=== PATIENT | male | born 1970 | race Caucasian/White ===

== ENCOUNTER 2017-07-18 18:08 | Emergency (ER) | payer SELFPAY ==
[~2017-07-18] VITALS: Ht 177.8 cm; Wt 86.2 kg
[2017-07-18 18:13] VITALS: BP 130/86
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
[2017-07-18] MEDS ORDERED: MULTIVITAMIN-12 10 ML, THIAMINE 100 MG, MAGNESIUM SULFATE 50% 2,000 MG, FOLIC ACID 5 MG... IV ONE ×5 (19:37)
[2017-07-18] MEDS ORDERED: FOLIC ACID 5 MG/ML SYR ONE (19:45)
[2017-07-18] MEDS ORDERED: THIAMINE 200 MG/2 ML VIAL ONE (19:45)
[2017-07-18] MEDS ORDERED: MULTIVITAMIN-12 10 ML VIAL IV ONE (19:45)
[2017-07-18] MEDS ORDERED: MAGNESIUM SULFATE 50% 1000 MG/2 ML VIAL IV ONE (19:45)
[2017-07-18 19:54] LABS: BASOPHILS # (AUTO) 0.3 K/uL (0.00-0.22); EOSINOPHILS # (AUTO) 0.1 K/uL (0-0.4); HEMOGLOBIN 16.4 g/dL (12.0-18.0); LYMPHOCYTES # (AUTO) 1.6 K/uL (2.0-11.5); MEAN CORPUSCULAR HEMOGLOBIN 30 pg (27-31); MEAN CORPUSCULAR HGB CONC 33 g/dL (33-37); MEAN CORPUSCULAR VOLUME 90 fL (80-94); MONOCYTES # (AUTO) 0.8 K/uL (0.8-1.0); NEUTROPHILS # (AUTO) 6.2 K/uL (1.8-7.7); PLATELET COUNT (AUTO) 345 K/uL (140-450); RED BLOOD CELL COUNT(AUTO) 5.53 MIL/uL (4.20-6.10); RED CELL DISTRIBUTION WIDTH 12.3 % (11.6-13.7)
[2017-07-18 20:11] LABS: ALBUMIN 4.3 g/dL (3.4-5.0); ANION GAP 16.2 (8-16); CARBON DIOXIDE 24.7 mmol/L (21-32); TOTAL BILIRUBIN 1.5 mg/dL (0.0-1.0)
[2017-07-18 20:13] LABS: POTASSIUM 2.9 mmol/L (3.5-5.1)
[2017-07-18] MEDS ORDERED: POTASSIUM CHLORIDE 20% 40 MEQ/15 ML UDC PO ONE (20:15)
[2017-07-18] MEDS ORDERED: KCL 20 MEQ/WATER INJ PREMIX 200 ML IV ONE (20:15)
--- NOTE | 2017-07-18 20:20 | NUR ---
POTASSIUM PO UNABLE TO GIVE AT THIS TIME D/T PT IS ASLEEP/UNABLE TO SWALLOW AT THIS TIME, PER ER MD OK TO GIVE ONCE PT IS AWAKE.
--- NOTE | 2017-07-18 20:30 | NUR ---
Patient appears to be resting comfortably in bed. Vital Signs within normal limits. Respirations even and unlabored.
[2017-07-18 20:35] LABS: BARBITURATE, URINE NEG. ng/ml (NEG <=200); BENZODIAZEPINE, URINE NEG. ng/mL (NEG <=200); CANNABINOID, URINE NEG. ng/mL (NEG <=50); COCAINE, URINE NEG. ng/mL (NEG <=300); OPIATE, URINE NEG. ng/mL (NEG <=2000); PHENCYCLIDINE SCREEN,URINE NEG. ng/mL (NEG <=25)
--- NOTE | 2017-07-18 21:51 | NUR ---
PT TAKEN TO CT
[2017-07-18] MEDS ORDERED: POTASSIUM CHLORIDE 20% 40 MEQ/15 ML UDC ONE (22:21)
--- NOTE | 2017-07-18 23:00 | NUR ---
Patient appears to be resting comfortably in bed. Vital Signs within normal limits. Respirations even and unlabored.
[2017-07-18 23:40] VITALS: BP 129/76
--- NOTE | 2017-07-18 23:40 | NUR ---
Patient presented to facility under the influence of Alcohol/Drugs. Patient is currently ambulatory with steady gait, able to walk unassisted. Positive gag reflex. Alert and oriented. Is not driving self for discharge out of facility. IV removed, catheter intact and site benign. Applied folded 4x4 gauze and tape to stop bleeding. Patient discharged with v/s stable. Written and verbal after care instructions given and explained. Patient verbalized understanding. Ambulatory with steady gait. All questions addressed prior to discharge. Advised to follow up with PMD.
== END 2017-07-18 23:40 | disposition home or self-care (01) ==
LOC: MED 18:08 → EDBD 18:08 → MED 23:40
DX: G92 Toxic encephalopathy (principal); T43.625A Adverse effect of amphetamines, initial encounter; Y92.89 Other specified places as the place of occurrence of the external cause
CPT/HCPCS: 36415; 70450; 72125; 80053; 80305; 82948; 83690; 84484; 85025; 96365; 96366; 99285; A9153; C1758; G0482; J3411; J3475; J3480; J3490; J7030; 96375